=== PATIENT | male | born 1995 | race Caucasian/White ===

== ENCOUNTER 2021-10-04 16:47 | Emergency (ER) | payer BC ==
[2021-10-04 17:48] VITALS: O2SAT 97
[2021-10-04 18:05] VITALS: PULSE 98
[2021-10-04 18:07] VITALS: BP 114/74
[2021-10-04] MEDS ORDERED: Erythromycin 3.5 GM OPHTH. OP ONE (18:35)
[2021-10-04] MEDS ORDERED: TETRACAINE 0.5% STERI-UNIT SOL OP STA (18:35)
[2021-10-04] MEDS ORDERED: Fluor-I-Strip/Ful-Flo OP ONE ×2 (18:36→18:38)
[2021-10-04] MEDS ORDERED: TETRACAINE 0.5% STERI-UNIT SOL OP ONE (18:37)
[2021-10-04] MEDS ORDERED: Erythromycin 1 GM ONE (18:38)
[2021-10-04] MEDS ORDERED: Eye-Stream Solution OP ONE (18:39)
[2021-10-04] MEDS ORDERED: Eye-Stream Solution ONE (18:40)
--- NOTE | 2021-10-04 18:51 | ERPHSYRPT ---
- History of Present Illness Time Seen by Provider: 10/04/21 17:55 Source: patient Exam Limitations: no limitations Patient Subjective Stated Complaint: pt was at work and someone was using an air hose and something blew in his right eye and he has tried to wash it out but states that it feels like it's still in there Triage Nursing Assessment: Pt brought self to the ER, vitals wnl, rates pain 8/10, right eye red and tearing, denies any other injuries or problems Physician History: Patient is a 26-year-old male presents to emergency department for evaluation of station in his right eye. Patient was at work. Someone was using a air hose and blew debris into his right eye. Patient irrigated his eye immediately however continues to feel foreign body in his right eye. Patient wears eyeglasses. No contacts. Pain described as a foreign body sensation. No headache. No blunt trauma. No nausea or vomiting. Tetanus up-to-date. Patient otherwise healthy. He voices no other complaints or concerns at this ti me. Timing/Duration: today Location: right eye Severity: moderate Apparent Injury: no Associated Symptoms: redness, blurred vision Visual Assistive Devices: Glasses Chemical Exposure: No Trauma: No Welding Arc/Tanning Bed Exposure: No Allergies/Adverse Reactions: No Known Drug Allergies Allergy (Verified 10/04/21 17:48) Home Medications: Gabapentin 300 mg [Neurontin 300 mg] 300 mg PO TID 10/04/21 [History] Travel Risk - International Travel Have you traveled outside of the country in past 3 weeks: No - Coronavirus Screening Are you exhibiting any of the following symptoms?: No Close contact with a COVID-19 positive Pt in past 14-21 Days: No - Vaccine Status Have you recieved a Covid-19 vaccination: No - Review of Systems Constitutional: No Symptoms, No Fever, No Chills Eyes: No Symptoms Ears, Nose, & Throat: No Symptoms Respiratory: No Symptoms, No Cough, No Dyspnea Cardiac: No Symptoms, No Chest Pain, No Edema, No Syncope Abdominal/Gastrointestinal: No Symptoms, No Abdominal Pain, No Nausea, No Vomiting, No Diarrhea Genitourinary Symptoms: No Symptoms, No Dysuria Musculoskeletal: No Symptoms, No Back Pain, No Neck Pain Skin: No Symptoms, No Rash Neurological: No Symptoms, No Dizziness, No Focal Weakness, No Sensory Changes Psychological: No Symptoms Endocrine: No Symptoms Hematologic/Lymphatic: No Symptoms Immunological/Allergic: No Symptoms All Other Systems: Reviewed and Negative - Past Medical History Pertinent Past Medical History: Yes Other Medical History: scoliosis - Past Surgical History Past Surgical History: No - Social History Smoking Status: Current some day smoker Exposure to second hand smoke: Yes Drug Use: none Patient Lives Alone: No - Nursing Vital Signs Nursing Vital Signs: Initial Vital Signs Temperature 98.5 F 10/04/21 17:42 Pulse Rate 87 10/04/21 17:42 Blood Pressure 114/74 10/04/21 17:42 O2 Sat by Pulse Oximetry 97 10/04/21 17:42 Pain Scale Pain Intensity 8 - Physical Exam Vision Acuity Degree Evaluation Phase: Corrected Vision Acuity Right Eye: 20/70 Vision Acuity Left Eye: 20/20 Intraocular Pressure (Tonopen): both eyes (14right eye, Intraocular pressure left is 13 Visual acuity both eyes 20/30) Eye Exam: bilateral eye: normal inspection, PERRL, EOMI Ears, Nose, Throat Exam: normal ENT inspection, TMs normal, pharynx normal Neck Exam: normal inspection, non-tender, supple, full range of motion Respiratory Exam: normal breath sounds, lungs clear, respiratory distress, No chest tenderness Cardiovascular Exam: regular rate/rhythm, normal heart sounds, normal peripheral pulses Gastrointestinal Exam: soft, normal bowel sounds, No tenderness, No distention Extremity Exam: normal inspection, normal range of motion, pelvis stable Neurologic: alert, oriented x 3, cooperative, supervisor backfilling II-XII nml as tested Skin Exam: normal color, warm Lymphatic: No adenopathy SpO2 Interpretation: normal SpO2: 97 O2 Delivery: Room Air - Course Nursing assessment & vital signs reviewed: Yes Ordered Tests: Medication Summary Discontinued Medications Generic Name Dose Route Start Last Admin Trade Name Freq PRN Reason Stop Dose Admin Erythromycin 3.5 gm 10/04/21 18:35 10/04/21 18:49 Erythromycin Base 3.5 Gm Tube Eye Ointment OP 10/04/21 18:36 3.5 gm STAT ONE Administration Erythromycin Confirm 10/04/21 18:38 Erythromycin Base 1 Gm Tube Eye Ointment Administered 10/04/21 18:39 Dose 1 gm .ROUTE .STK-MED ONE Eye Irrigation Solution 15 ml 10/04/21 18:39 10/04/21 18:50 Sodium/Potassium/Yony/Magnesium 30 Ml Eye Wash OP 10/04/21 18:40 15 ml STAT ONE Administration Eye Irrigation Solution Confirm 10/04/21 18:40 Sodium/Potassium/Yony/Magnesium 30 Ml Eye Wash Administered 10/04/21 18:41 Dose 30 ml .ROUTE .STK-MED ONE Fluorescein Sodium 1 mg 10/04/21 18:36 10/04/21 18:49 Fluorescein Sodium 1 Mg/Strip Strip OP 10/04/21 18:37 1 mg STAT ONE Administration Fluorescein Sodium Confirm 10/04/21 18:38 Fluorescein Sodium 1 Mg/Strip Strip Administered 10/04/21 18:39 Dose 1 mg OP .STK-MED ONE Tetracaine HCl 4 ml 10/04/21 18:35 10/04/21 18:49 Tetracaine Hcl/Pf 4 Ml Bottle OP 10/04/21 18:36 4 ml STAT STA Administration Tetracaine HCl Confirm 10/04/21 18:37 Tetracaine Hcl/Pf 4 Ml Bottle Administered 10/04/21 18:38 Dose 4 ml OP .STK-MED ONE - Progress Progress: improved Progress Note: 10/04/21 18:56 Patient has a 4 x 4 centimeter corneal abrasion at 10:00. Negative Shawn sign. No signs of open globe. Pupils are reactive. No foreign bodies observed. I irrigated by RN. Erythromycin ophthalmic ointment applied. A prescription for the same was forwarded to patient's pharmacy. Patient referred to ophthalmology for further evaluation and treatment. Patient voices no other complaints or concerns at this time. Portions of this note were created with voice recognition technology. There may be grammatical, spelling, punctuation or sound alike errors Counseled pt/family regarding: diagnosis, need for follow-up, rad results - Departure Departure Disposition: Home Clinical Impression: Corneal abrasion Condition: Stable Critical Care Time: No Referrals: PARRISH ABURTO NP [Primary Care Provider] - Follow up/PCP as directed SOFIE BARBER OD [NON-STAFF PHY W/O PRIVILEGES] - Follow up/PCP as directed Additional Instructions: Discharge/Care Plan KATELYN THORNTON was seen on 10/04/21 in the Emergency Room. The patient was counseled regarding Diagnosis,Lab results, Imaging studies, need for follow up and when to return to the Emergency Room. Prescriptions given: Discharge Note I have spoken with the patient and/or caregivers. I have explained the patient's condition, diagnosis and treatment plan based on the information available to me at this time. I have answered the patient's and/or caregiver's questions and addressed any concerns. The patient and/or caregivers have as good understanding of the patient's diagnosis, condition and treatment plan as can be expected at this point. The vital signs have been stable. The patient's condition is stable and appropriate for discharge from the emergency department. The patient will pursue further outpatient evaluation with the primary care physician or other designated or consulting physician as outlined in the discharge instructions. The patient and/or caregivers are agreeable to this plan of care and follow-up instructions have been explained in detail. The patient and/or caregivers have received these instruction. The patient/and or caregivers are aware that any significant change in condition or worsening of symptoms should prompt an immediate return to this or the closest emergency department or call 911. Prescriptions: Erythromycin Base 3.5 gm [Erythromycin 3.5 GM OPHTH.] 3.5 gm OP QID 7 Days #1 unit
== END 2021-10-04 18:59 | disposition home or self-care (01) ==
LOC: ED 16:47
DX: T15.01XA Foreign body in cornea, right eye, initial encounter (principal); W20.8XXA Other cause of strike by thrown, projected or falling object, initial encounter; Y99.0 Civilian activity done for income or pay; H57.11 Ocular pain, right eye; H53.8 Other visual disturbances; Z72.0 Tobacco use
CPT/HCPCS: 99283; A9270-GY